=== PATIENT | male | born 1960 | race Caucasian/White ===

== ENCOUNTER 2016-09-16 10:06 | Emergency (ER) | payer OTHER ==
[~2016-09-16] VITALS: Ht 175.3 cm; Wt 99.8 kg
[~2016-09-16 10:06] MED LIST: AMLODIPINE10 MG PO; ATORVASTATIN CA10 MG PO; TRAMADOL50 MG PO
[2016-09-16 10:23] VITALS: BP 128/74
--- NOTE | 2016-09-16 10:56 | ED GENERAL ADULT ---
History of Present Illness General Chief Complaint: General Adult Stated Complaint: NEEDS PAIN MEDICATION Source: patient Exam Limitations: no limitations Vital Signs & Intake/Output Vital Signs & Intake/Output Vital Signs Date Time Temp Pulse Resp B/P Pulse O2 O2 Flow FiO2 Ox Delivery Rate 09/16 1023 98.4 84 18 128/74 99 Room Air Allergies Coded Allergies: shellfish derived (SHELLFISH - FACIAL SWELLING, HANDS 11/13/15) Uncoded Allergies: ASPRIN (Intermediate, BLLEDING 09/16/16) Reconcile Medications Amlodipine Besylate (Amlodipine) 10 MG TABLET 1 TAB PO DAILY BP (Reported) Atorvastatin Calcium (Lipitor) 10 MG TABLET 1 TAB PO DAILY CHOLESTEROL ( Reported) Oxycodone HCl (Oxycontin) 20 MG TAB.ER.12H 1 TAB PO DAILY PRN pain TRAMADOL HCL (Tramadol) 50 MG TABLET 2 TAB PO BID PAIN (Reported) Triage Note: REQUESTING REFILL OF OXYCODONE 20MG, FOR CHRONIC BACK PAIN, RAN OUT YESTERDAY. STATES HIS PMD (DR. VILLAVICENCIO) CANNOT PRESCRIBE ANYMORE. ALSO STATES IS TRYING TO GET TRAVIS APPOINTMENT WITH PAIN CLINIC IN [place]. Triage Nurses Notes Reviewed? yes Onset: Just prior to arrival Duration: day(s): (1) Timing: no prior history Injury Environment: home Severity: moderate HPI: Patient is a 56-year-old male with history of chronic pain presenting to the emergency department requesting refill medication. He reports that he takes 20 mg oxycodone daily and he ran out yesterday. His primary care physician can no longer fill his prescription. He is waiting to get an appointment with pain management in [place]. Denies any trauma. No numbness or tingling. Denies any nausea or vomiting fevers or chills chest pain or shortness of breath. He simply here for refill prescriptions. (TOMASA HUANG) Past History Travel History Traveled to [place] past 21 day No Medical History Any Pertinent Medical History? see below for history Cardiovascular: LBBB Musculoskeletal: CHRONIC BACK AND SCIATICA Tetanus Vaccine: 04/10/14 Surgical History Surgical History: N Psychosocial History What is your primary language Chadian Tobacco Use: Current Daily Use Daily Tobacco Use Amount/Type: => 5 Cigarettes daily ETOH Use: denies use Family History Hx Contributory? No (TOMASA HUANG) Review of Systems Review of Systems Constitutional: Reports: no symptoms. Comments Review of systems: See HPI, All other systems negative. Constitutional, no chills fever or weight loss HEENT: No visual changes no sore throat no congestion Cardiovascular: No chest pain ,palpitation , orthopnea or ankle swelling Skin, no jaundice no rashes Respiratory: No dyspnea cough sputum or hemoptysis GI: No nausea no vomiting : No dysuria No hematuria Muscle skeletal: no increased back pain, no neck pain, Neurologic: No numbness no confusion Psych: No stress anxiety Immunology: No splenectomy or history of AIDS (TOMASA HUANG) Physical Exam Physical Exam General Appearance: well developed/nourished, no apparent distress, alert Comments: Well-developed well-nourished person in no acute distress HEENT: Pupils equally round and reactive to light and accommodation. Nose is atraumatic. Neck: Normal inspection Back: Moderate tenderness to palpation in the thoracic and lumbar paraspinal muscles. No bony tenderness. Near full range of motion somewhat limited secondary to pain. Cardiovascular: normal JVP Respiratory: No respiratory distress. Extremity: No edema Neuro: Alert oriented x3 Skin: No appreciable rash on exposed skin, skin is warm and dry. Psych: Mood and affect is normal, memory and judgment is normal. Core Measures ACS in differential dx? No CVA/TIA Diagnosis: No Severe Sepsis Present: No Septic Shock Present: No (TOMASA HUANG) Progress Differential Diagnoses I considered the following diagnoses in my evaluation of the patient: Medication refill, chronic pain, sciatica, herniated disc Plan of Care: Patient given limited prescription. He'll follow up with pain management. Patient nontoxic. CT [employer] shows that he has been getting 20 mg oxycodone from his primary care physician for the past several months and he did actually run out of his medication yesterday. Patient will follow-up with pain management. Initial ED EKG: none (TOMASA HUANG) Departure Departure Time of Disposition: 1107 Disposition: HOME OR SELF CARE Condition: Stable Clinical Impression Primary Impression: Medication refill Secondary Impressions: Chronic pain Qualifiers: Chronic pain type: other chronic pain Qualified Code: G89.29 - Other chronic pain Referrals: BROOKS VELASCO,VALENTIN (PCP/Family) Additional Instructions: Follow-up with your primary care physician and pain management. Return for worsening symptoms or concerns. Take oxycodone as prescribed. Departure Forms: Customer Survey General Discharge Information Prescriptions: Current Visit Scripts Oxycodone HCl (Oxycontin) 1 TAB PO DAILY PRN pain #10 TAB (TOMASA HUANG) PA/INSPECTOR MATERIAL DISPOSITION Co-Sign Statement Statement: ED Attending supervision documentation- [] I saw and evaluated the patient. I have also reviewed all the pertinent lab results and diagnostic results. I agree with the findings and the plan of care as documented in the PA's/INSPECTOR MATERIAL DISPOSITION's documentation. x I have reviewed the ED Record and agree with the PA's/INSPECTOR MATERIAL DISPOSITION's documentation. [] Additions or exceptions (if any) to the PAs/INSPECTOR MATERIAL DISPOSITION's note and plan are summarized below: [] (SANDER VELASCO,MILIDN) Critical Care Note Critical Care Note Critical Care Time: non-applicable (TOMASA HUANG)
[2016-09-16] MEDS ORDERED: OXYCONTIN20 M1 PO (11:09)
[2016-09-16] MEDS ORDERED: OXYCODONE HCL20 M2 PO (13:05)
== END 2016-09-16 11:15 ==
LOC: ERH 10:06
DX: Z76.0 Encounter for issue of repeat prescription (principal); G89.29 Other chronic pain
CPT/HCPCS: 99281

== ENCOUNTER 2016-09-25 10:16 | Emergency (ER) | payer OTHER ==
[~2016-09-25] VITALS: Ht 175.3 cm; Wt 99.8 kg
[~2016-09-25 10:16] MED LIST changes: +OXYCODONE HCL20 M2 PO; +OXYCONTIN20 M1 PO
[2016-09-25] MEDS ORDERED: OXYCONTIN20 M1 PO (11:54)
--- NOTE | 2016-09-25 11:54 | ED NECK/BACK PAIN COMPLAINT ---
History of Present Illness General Chief Complaint: General Adult Stated Complaint: PAIN MED REFILL Source: patient Exam Limitations: no limitations Vital Signs & Intake/Output Vital Signs & Intake/Output Vital Signs Date Time Temp Pulse Resp B/P Pulse O2 O2 Flow FiO2 Ox Delivery Rate 09/25 1204 84 148/74 09/25 1022 97.9 87 14 149/80 99 Room Air Allergies Coded Allergies: shellfish derived (SHELLFISH - FACIAL SWELLING, HANDS 11/13/15) Uncoded Allergies: ASPRIN (Intermediate, BLLEDING 09/16/16) Reconcile Medications Amlodipine Besylate (Amlodipine) 10 MG TABLET 1 TAB PO DAILY BP (Reported) Atorvastatin Calcium (Lipitor) 10 MG TABLET 1 TAB PO DAILY CHOLESTEROL ( Reported) Oxycodone HCl (Oxycontin) 20 MG TAB.ER.12H 1 TAB PO BID pain Oxycodone HCl (Oxycontin) 20 MG TAB.ER.12H 1 TAB PO DAILY PRN pain Oxycodone HCl 20 MG TABLET 1 TAB PO BID PRN PAIN TRAMADOL HCL (Tramadol) 50 MG TABLET 2 TAB PO BID PAIN (Reported) Triage Note: 56 Y/O MALE REQUESTING REFILL OF OXYCODONE 20MG. STATES HIS PRIMARY CARE DOCTOR "MESSED UP MY APPOINTMENT WITH PAIN MANAGEMENT. I NEED THEM TO THURSDAY, I HAVE AN APPT THURSDAY". C/O BACK PAIN Triage Nurses Notes Reviewed? yes Onset: Abrupt Duration: day(s):, constant, continues in ED Timing: recent history Quality/Severity: moderate, severe Location: lumbar spine Method of Injury: unknown HPI: 56-year-old male comes into emergency room with complaints of chronic low back pain and requesting refill on his OxyContin prescription. Patient reports that pain management screwed up with his prescription this month and he is out of his pain medication and has an appointment with them on Thursday. Patient complains of chronic pain. Patient has been on these medications for many years. Denies any other new associated symptoms. Pain is sharp. Worse with range of motion. Past History Travel History Traveled to [place] past 21 day No Medical History Any Pertinent Medical History? 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 No Review of Systems Review of Systems Constitutional: Reports: no symptoms. Eyes: Reports: no symptoms. Ears, Nose, Throat, Mouth: Reports: no symptoms. Respiratory: Reports: no symptoms. Cardiovascular: Reports: no symptoms. Gastrointestinal/Abdominal: Reports: no symptoms. Musculoskeletal: Reports: see HPI. Skin: Reports: no symptoms. Neurological/Psychological: Reports: no symptoms. All Other Systems: Reviewed and Negative Physical Exam Physical Exam General Appearance: well developed/nourished, mild distress Head: atraumatic Eyes: Bilateral: normal appearance. Ears, Nose, Throat, Mouth: hearing grossly normal, moist mucous membrane Neck: normal inspection, full range of motion Respiratory: no respiratory distress Back: normal inspection Extremities: normal range of motion Motor: Deficit L4 Right: No Deficit L4 Left: No Deficit L5 Right: No Deficit L5 Left: No Deficit S1 Right: No Deficit S1 Right: No Neurologic/Psych: awake, alert, oriented x 3, normal mood/affect Skin: intact, normal color, warm/dry Progress Differential Diagnosis: cauda equina syn, herniated disc, myofascial strain, pyelo/UTI, sciatica, spinal cord inj, thoracic outlet syn, T/L spine injury, ureterolithiasis Plan of Care: 09/25/2016 12:19:14 PM This is a chronic pain for the patient. Patient is just here for medication refill. Follow back up with her pain management doctor. Return if any other concerns worsening symptoms. Departure Departure Disposition: HOME OR SELF CARE Condition: Stable Clinical Impression Primary Impression: Acute exacerbation of chronic low back pain Referrals: BROOKS VELASCO,VALENTIN (PCP/Family) Additional Instructions: Take OxyContin as prescribed. Follow-up with your pain management doctor. Return if any other concerns worsening symptoms. Please go over all results of today's visit with your primary care doctor. Contact your primary care doctor to let them know you were here in the emergency room. There may be nonspecific findings which may not be related to your visit today here in the emergency room but may require further evaluation and chronic monitoring by your primary care doctor. If you had a laceration today the chance of foreign body always remains. You should follow-up with your primary care doctor for recheck in 3-5 days for a wound check. If you had an x-ray done there is a chance that a fracture could have been missed on initial read and you should follow-up with your primary care doctor for repeat x-rays if symptoms persist. If your blood pressure was elevated here in the emergency room please have rechecked by her primary care doctor within the next 48 hours by your primary care doctor. If you were prescribed a narcotic here in the emergency room or any type of controlled substances you're not allowed to drive while taking this medication or operate any type of heavy machinery. Narcotics can make you feel lightheaded dizziness nausea and can cause constipation. You may need to turkey picker a stool softener. Thank you for choosing emergency room. Please return to the emergency room immediately if you have any other concerns worsening of symptoms. Departure Forms: Customer Survey General Discharge Information Prescriptions: Current Visit Scripts Oxycodone HCl (Oxycontin) 1 TAB PO BID #10 TAB
[2016-09-25 12:04] VITALS: BP 148/74
== END 2016-09-25 12:05 ==
LOC: ERH 10:16
DX: G89.29 Other chronic pain (principal); M54.5 Low back pain
CPT/HCPCS: 99281

== ENCOUNTER 2016-09-29 16:29 | Emergency (ER) | payer OTHER ==
[~2016-09-29] VITALS: Ht 175.3 cm; Wt 99.8 kg
[2016-09-29 16:48] VITALS: BP 135/84
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
[2016-09-29] MEDS ORDERED: PERCOCET 5-3251 EACH PO ×2 (18:20→18:23)
== END 2016-09-29 18:45 ==
LOC: ERH 16:29
DX: M54.5 Low back pain (principal)